=== PATIENT | female | born 2000 | race Caucasian/White ===

== ENCOUNTER 2021-05-29 10:21 | Emergency (ER) | payer OTHER ==
[~2021-05-29] VITALS: Ht 152.4 cm; Wt 55.3 kg
[2021-05-29 10:24] VITALS: BP 134/81
--- NOTE | 2021-05-29 10:35 | NUR ---
PATIENT AMBULATED TO BED 12.
--- NOTE | 2021-05-29 10:40 | NUR ---
20 Y/O FEMALE BIB SELF. PATIENT PRESENTS TO ED WITH 10/10 PAIN IN RIGHT COLLAR BONE, SHE DESCRIBES AN ACHE, NON RADIATING. PT STATES SHE HAS PAIN WITH TURNING HER HEAD TO THE RIGHT OR MOVING HER ARM. DENIES N/V/D; SKIN IS PINK/WARM/DRY; AAOX4 WITH EVEN AND STEADY GAIT; PT DENIES ANY FEVER, CP, SOB, OR COUGH AT THIS TIME; BREATHING UNLABORED; CALM MDEMEANOR; VSS; PATIENT POSITIONED FOR COMFORT; HOB ELEVATED; BEDRAILS UP X1; BED DOWN. ER MD MADE AWARE OF PT STATUS. NO PMH NKDA NO MEDS
[2021-05-29 11:13] VITALS: BP 134/81
--- NOTE | 2021-05-29 11:14 | NUR ---
Patient discharged with v/s stable. Written and verbal after care instructions given and explained. Patient verbalized understanding. Ambulatory with steady gait. All questions addressed prior to discharge. Advised to follow up with PMD. Pt has calm demeanor; unlabored breathing w/ equal chest rise/fall, able to ambulate w/o assistance.
== END 2021-05-29 11:14 | disposition home or self-care (01) ==
LOC: MED 10:21
DX: M62.830 Muscle spasm of back (principal); F12.90 Cannabis use, unspecified, uncomplicated; Z90.49 Acquired absence of other specified parts of digestive tract
CPT/HCPCS: 99282